=== PATIENT | female | born 1995 | race Caucasian/White ===

== ENCOUNTER 2019-06-24 19:47 | Outpatient (CLI) | payer OTHER, MEDICAID ==
[2019-06-24 22:20] LABS: ADD UMIC YES; UR ASCORBIC ACID NEGATIVE (NEGATIVE); UR BACTERIA FEW /HPF (NONE SEEN); UR BILIRUBIN (Dip) NEGATIVE (NEGATIVE); UR BLOOD (Dip) NEGATIVE (NEGATIVE); UR CALCIUM OXALATE CRYSTAL MANY /HPF (NONE SEEN); UR CLARITY SLIGHTLY CLOUDY (CLEAR); UR COLOR YELLOW (YELLOW); UR GLUCOSE (Dip) NEGATIVE (NEGATIVE); UR KETONES (Dip) NEGATIVE (NEGATIVE); UR LEUKOCYTE ESTERASE (Dip) TRACE Leu/ul (NEGATIVE); UR MUCUS FEW /HPF (NONE SEEN); UR NITRITE (Dip) NEGATIVE (NEGATIVE); UR RBC 4 /HPF (0-5); UR SPECIFIC GRAVITY (Dip) 1.023 (1.003-1.030); UR SQUAMOUS EPITHELIAL CELL FEW /HPF (FEW); UR TOTAL PROTEIN (Dip) NEGATIVE (NEGATIVE); UR UROBILINOGEN (Dip) NEGATIVE (NEGATIVE); UR WBC 5 /HPF (0-5)
== END 2019-06-24 23:54 | disposition home or self-care (01) ==
LOC: OBT 19:47 → L-D 19:51 → OBT 23:54
DX: O62.9 Abnormality of forces of labor, unspecified (principal); Z3A.35 35 weeks gestation of pregnancy
CPT/HCPCS: 76818; 81001

== ENCOUNTER 2019-07-18 14:16 | Inpatient (IN) | payer OTHER ==
[2019-07-18 15:08] LABS: ADD MAN DIFF? NO
[2019-07-18 15:10] LABS: WHITE BLOOD COUNT 12.1 10^3/ul (4.8-10.8)
[2019-07-18 15:10] LABS: BASOPHILS % 0.2 % (0.0-2.0); EOSINOPHILS # 0.2 10^3/ul (0.0-0.5); EOSINOPHILS % 1.6 % (0.0-7.0); HEMATOCRIT 34.8 % (37.0-47.0); HEMOGLOBIN 10.9 g/dl (12.0-16.0); LYMPHOCYTES # 2.2 10^3/ul (0.8-2.9); LYMPHOCYTES % 18.5 % (15.0-51.0); MEAN CORPUSCULAR HEMOGLOBIN 27.2 pg (29.0-33.0); MEAN CORPUSCULAR HGB CONC 31.3 g/dl (32.0-37.0); MEAN CORPUSCULAR VOLUME 86.8 fl (82.0-101.0); MEAN PLATELET VOLUME 10.6 fl (7.4-10.4); MONOCYTE # 1.1 10^3/ul (0.3-0.9); MONOCYTES % 8.7 % (0.0-11.0); NEUTROPHIL # 8.6 10^3/ul (1.6-7.5); NEUTROPHILS % 70.5 % (39.0-77.0); PLATELET COUNT 363 10^3/UL (140-415); RED BLOOD COUNT 4.01 10^6/ul (4.20-5.40); RED CELL DISTRIBUTION WIDTH 13.1 % (11.5-14.5)
[2019-07-18 15:28] LABS: ALANINE AMINOTRANSFERASE 59 IU/L (13-69); ALBUMIN 3.5 g/dl (3.3-4.9); ALBUMIN/GLOBULIN RATIO 1.06; ALKALINE PHOSPHATASE 246 IU/L (42-121); ANION GAP 6 (5-13); ASPARTATE AMINO TRANSFERASE 40 IU/L (15-46); BILIRUBIN,INDIRECT 0.2 mg/dl (0-1.1); BILIRUBIN,TOTAL 0.2 mg/dl (0.2-1.3); BLOOD UREA NITROGEN 6 mg/dl (7-20); CARBON DIOXIDE 24 mmol/L (21-31); CHLORIDE 106 mmol/L (97-110); CREATININE 0.83 mg/dl (0.44-1.00); Estimated GFR > 60 mL/min (>60); GLUCOSE 107 mg/dl (70-220); POTASSIUM 4.1 mmol/L (3.5-5.1); SODIUM 136 mmol/L (135-144); TOTAL PROTEIN 6.8 g/dl (6.1-8.1)
[2019-07-18 15:30] LABS: INR 0.92; PROTIME 12.5 Sec (11.9-14.9)
[2019-07-18 15:31] LABS: PARTIAL THROMBOPLASTIN TIME 27.1 Sec (23.0-35.0)
[2019-07-18 15:37] LABS: ADD UMIC YES; UR ASCORBIC ACID NEGATIVE (NEGATIVE); UR BACTERIA FEW /HPF (NONE SEEN); UR BILIRUBIN (Dip) NEGATIVE (NEGATIVE); UR BLOOD (Dip) NEGATIVE (NEGATIVE); UR CLARITY CLOUDY (CLEAR); UR COLOR AMBER (YELLOW); UR GLUCOSE (Dip) NEGATIVE (NEGATIVE); UR KETONES (Dip) TRACE mg/dL (NEGATIVE); UR LEUKOCYTE ESTERASE (Dip) 1+ Leu/ul (NEGATIVE); UR MUCUS MANY /HPF (NONE SEEN); UR NITRITE (Dip) NEGATIVE (NEGATIVE); UR RBC 6 /HPF (0-5); UR SPECIFIC GRAVITY (Dip) 1.026 (1.003-1.030); UR SQUAMOUS EPITHELIAL CELL MANY /HPF (FEW); UR TOTAL PROTEIN (Dip) 1+ mg/dl (NEGATIVE); UR UROBILINOGEN (Dip) 2+ mg/dL (NEGATIVE); UR WBC 20 /HPF (0-5)
[2019-07-18] MEDS ORDERED: CARBOPROST 250 MCG INJ IM (16:30)
[2019-07-18] MEDS ORDERED: MISOPROSTOL 200 MCG TAB PR (16:30)
[2019-07-18] MEDS ORDERED: BUTORPHANOL 2 MG INJ IV (16:30)
[2019-07-18] MEDS ORDERED: LIDOCAINE 1% (MPF) 30 ML INJ INJ (16:30)
[2019-07-18] MEDS ORDERED: OXYTOCIN 30 UNITS/LR 500 ML IV ×2 (16:30)
[2019-07-18] MEDS ORDERED: METHYLERGONOVINE 0.2 MG INJ IM (16:30)
[2019-07-18] MEDS ORDERED: MAGNESIUM SULFATE 20 GM/500 ML 500 ML IV (17:58)
[2019-07-18] MEDS: LACTATED RINGER'S 1,000 ML IV (18:37)
[2019-07-18] MEDS: MAGNESIUM SULFATE 4 GM/100 ML 100 ML IV (18:37)
[2019-07-18] MEDS: MISOPROSTOL 50 MCG CAPSULE PO (19:01)
[2019-07-18] MEDS: MAGNESIUM SULFATE 40GM/1000ML 1,000 ML IV (19:06)
[2019-07-19 00:54] LABS: MAGNESIUM 4.8 mg/dl (1.7-2.5)
[2019-07-19] MEDS ORDERED: MINERAL OIL LIGHT 10 ML VIAL TOP (01:00)
[2019-07-19] MEDS ORDERED: OXYTOCIN 30 UNITS/LR 500 ML IV ×2 (01:00→18:30)
[2019-07-19 07:03] LABS: MAGNESIUM 5.2 mg/dl (1.7-2.5)
[2019-07-19] MEDS ORDERED: FENTAnyl 2MCG/ML-ROPIV 0.2% 100 ML (07:38)
[2019-07-19] MEDS ORDERED: ONDANSETRON 4 MG INJ (08:06)
[2019-07-19 08:43] LABS: ADD MAN DIFF? NO
[2019-07-19 08:46] LABS: BASOPHILS % 0.4 % (0.0-2.0); EOSINOPHILS # 0.2 10^3/ul (0.0-0.5); EOSINOPHILS % 1.4 % (0.0-7.0); HEMATOCRIT 32.4 % (37.0-47.0); LYMPHOCYTES % 19.3 % (15.0-51.0); MEAN CORPUSCULAR HEMOGLOBIN 26.7 pg (29.0-33.0); MEAN CORPUSCULAR HGB CONC 30.9 g/dl (32.0-37.0); MEAN CORPUSCULAR VOLUME 86.4 fl (82.0-101.0); MEAN PLATELET VOLUME 10.5 fl (7.4-10.4); MONOCYTE # 0.7 10^3/ul (0.3-0.9); MONOCYTES % 6.4 % (0.0-11.0); NEUTROPHIL # 7.6 10^3/ul (1.6-7.5); NEUTROPHILS % 71.9 % (39.0-77.0); PLATELET COUNT 343 10^3/UL (140-415); RED BLOOD COUNT 3.75 10^6/ul (4.20-5.40); RED CELL DISTRIBUTION WIDTH 13.1 % (11.5-14.5)
[2019-07-19 08:46] LABS: WHITE BLOOD COUNT 10.6 10^3/ul (4.8-10.8)
[2019-07-19] MEDS: LACTATED RINGER'S 1,000 ML IV ×2 (09:04→17:26)
[2019-07-19 09:07] LABS: ALANINE AMINOTRANSFERASE 69 IU/L (13-69); ALBUMIN/GLOBULIN RATIO 0.93; ALKALINE PHOSPHATASE 278 IU/L (42-121); ANION GAP 8 (5-13); ASPARTATE AMINO TRANSFERASE 53 IU/L (15-46); BILIRUBIN,INDIRECT 0.4 mg/dl (0-1.1); BILIRUBIN,TOTAL 0.4 mg/dl (0.2-1.3); BLOOD UREA NITROGEN 4 mg/dl (7-20); CALCIUM 7.2 mg/dl (8.4-10.2); CARBON DIOXIDE 22 mmol/L (21-31); CHLORIDE 105 mmol/L (97-110); CREATININE 0.63 mg/dl (0.44-1.00); Estimated GFR > 60 mL/min (>60); GLUCOSE 104 mg/dl (70-220); LACTATE DEHYDROGENASE 320 IU/L (313-618); POTASSIUM 3.7 mmol/L (3.5-5.1); SODIUM 135 mmol/L (135-144); TOTAL PROTEIN 6.2 g/dl (6.1-8.1); URIC ACID 6.9 mg/dl (3.1-7.9)
[2019-07-19] MEDS ORDERED: DIPHENHYDRAMINE 50 MG INJ IV (11:30)
[2019-07-19] MEDS ORDERED: ONDANSETRON 4 MG INJ IV ×2 (11:30→18:30)
[2019-07-19] MEDS ORDERED: NALOXONE (0.4 MG/ML) INJ IV (11:30)
[2019-07-19 12:37] LABS: MAGNESIUM 3.4 mg/dl (1.7-2.5)
[2019-07-19] MEDS: FENTAnyl 2MCG/ML-ROPIV 0.2% 100 ML BAG EPI (17:25)
[2019-07-19] MEDS: OXYTOCIN 30 UNITS/LR 500 ML IV (18:28)
[2019-07-19] MEDS ORDERED: SENNA/DOCUSATE NA (8.6MG/50MG) TAB PO (18:30)
[2019-07-19] MEDS ORDERED: WITCH HAZEL/GLYCERIN PAD PR (18:30)
[2019-07-19] MEDS ORDERED: METHYLERGONOVINE 0.2 MG INJ IM (18:30)
[2019-07-19] MEDS ORDERED: ZOLPIDEM 5 MG TAB PO (18:30)
[2019-07-19] MEDS ORDERED: CARBOPROST 250 MCG INJ IM (18:30)
[2019-07-19] MEDS ORDERED: NACL 0.9% 3 ML SYG IV (18:30)
[2019-07-19] MEDS ORDERED: BENZOCAINE 20% 56 ML SPRAY TOP (18:30)
[2019-07-19] MEDS ORDERED: MISOPROSTOL 200 MCG TAB PR (18:30)
[2019-07-19] MEDS ORDERED: DIPHENHYDRAMINE 25 MG CAP PO (18:30)
[2019-07-19] MEDS ORDERED: MAGNESIUM HYDROXIDE 30ML CUP PO (18:30)
[2019-07-19] MEDS ORDERED: ACETAMINOPHEN 325 MG TAB PO (18:30)
[2019-07-19 18:48] LABS: RAPID PLASMA REAGIN NONREACTIVE (NR)
[2019-07-19] MEDS: IBUPROFEN 600 MG TAB PO (19:41)
[2019-07-19] MEDS: MISOPROSTOL 50 MCG CAPSULE PO ×2 (21:45→21:46)
[2019-07-19] MEDS: HYDROCODONE/APAP (5/325) TAB PO (23:27)
[2019-07-19 23:43] LABS: MAGNESIUM 3.7 mg/dl (1.7-2.5)
[2019-07-20] MEDS: MISOPROSTOL 50 MCG CAPSULE PO ×3 (00:11→01:00)
[2019-07-20] MEDS: OXYTOCIN 30 UNITS/LR 500 ML IV (05:17)
[2019-07-20 06:08] LABS: ADD MAN DIFF? NO
[2019-07-20] MEDS: IBUPROFEN 600 MG TAB PO ×4 (06:10→17:50)
[2019-07-20 06:11] LABS: BASOPHILS % 0.2 % (0.0-2.0); EOSINOPHILS # 0.3 10^3/ul (0.0-0.5); HEMATOCRIT 29.6 % (37.0-47.0); HEMOGLOBIN 9.3 g/dl (12.0-16.0); LYMPHOCYTES # 2.5 10^3/ul (0.8-2.9); LYMPHOCYTES % 19.6 % (15.0-51.0); MEAN CORPUSCULAR HEMOGLOBIN 27.1 pg (29.0-33.0); MEAN CORPUSCULAR HGB CONC 31.4 g/dl (32.0-37.0); MEAN CORPUSCULAR VOLUME 86.3 fl (82.0-101.0); MONOCYTE # 1.2 10^3/ul (0.3-0.9); NEUTROPHIL # 8.8 10^3/ul (1.6-7.5); NEUTROPHILS % 68.9 % (39.0-77.0); PLATELET COUNT 295 10^3/UL (140-415); RED BLOOD COUNT 3.43 10^6/ul (4.20-5.40); RED CELL DISTRIBUTION WIDTH 13.2 % (11.5-14.5)
[2019-07-20 06:11] LABS: WHITE BLOOD COUNT 12.8 10^3/ul (4.8-10.8)
[2019-07-20] MEDS: HYDROCODONE/APAP (5/325) TAB PO (09:25)
[2019-07-20] MEDS: LANOLIN HPA 1 PKT TOP (09:25)
[2019-07-20 16:12] LABS: RHOGAM PROFILE 1 1
[2019-07-21] MEDS: IBUPROFEN 600 MG TAB PO ×2 (00:07→05:38)
[2019-07-21] MEDS: DIPHTH/TET/ACEL PERTUSS (ADULT) 0.5 ML VIAL IM* (07:39)
[2019-07-21] MEDS: MEASLES,MUMPS,RUBELLA VACCINE INJ SC* (07:40)
== END 2019-07-21 11:43 | disposition home or self-care (01) | DRG 807 ==
LOC: OBT 14:16 → PP1 07-19 21:04 → L-D 14:17 → OBT 16:30 → L-D 16:30
PROC: 10E0XZZ Delivery of Products of Conception, External Approach (ICD-10-PCS; principal; 2019-07-19)
DX: O11.3 Pre-existing hypertension with pre-eclampsia, third trimester (principal); Z37.0 Single live birth; O69.81X0 Labor and delivery complicated by cord around neck, without compression, not applicable or unspecified; O10.913 Unspecified pre-existing hypertension complicating pregnancy, third trimester; Z3A.38 38 weeks gestation of pregnancy
CPT/HCPCS: 76815; 76818; 80053; 81001; 83615; 83735; 84560; 85025; 85384; 85610; 85730; 86592; 86850; 86885; 86900; 86901; 87255